=== PATIENT | female | born 1990 | race Caucasian/White ===

== ENCOUNTER 2017-02-26 07:22 | Inpatient (IN) | payer OTHER ==
[~2017-02-26] VITALS: Ht 162.6 cm; Wt 95.0 kg
[2017-02-26] VITALS (8 sets, daily range): BP systolic 103–120; BP diastolic 50–70
[~2017-02-26 07:22] MED LIST: DOCU10CA PO; IBUP80TA PO; IRON65TA PO; MOM30SS PO; PERCOCET PO; PRENCHW PO; VITAPRTA PO
[2017-02-26 08:35] LABS: MEAN CORPUSCULAR HEMOGLOBIN 28.3 pg (27.0-33.0); MEAN CORPUSCULAR HGB CONC 33.3 g/dl (32.0-36.5); MEAN CORPUSCULAR VOLUME 84.9 fl (80.0-96.0); RED CELL DISTRIBUTION WIDTH 14.5 % (11.5-14.5); WHITE BLOOD COUNT 9.7 K/mm3 (4.0-10.0)
[2017-02-26] MEDS ORDERED: BICITRA 30ML SOLN UDC PO ONE (08:45)
[2017-02-26] MEDS ORDERED: LR 1,000 ML IV SCH (08:45)
[2017-02-26] MEDS ORDERED: AZITHROMYCIN INJ 500 MG, VIAL MATE ADAPTER 1 EACH in D5W 250 ML IV ONE (08:45)
[2017-02-26] MEDS: DOCUSATE SODIUM 100 MG CAP PO SCH ×2 (09:00→20:54)
[2017-02-26] MEDS ORDERED: MORPHINE PRES-FREE INJ 10 MG/10 ML VIAL (J2274) As Ordered ONE (10:11)
[2017-02-26] MEDS ORDERED: PHENYLephrine HCL 500 MCG/5 ML (100MCG/ML) SYRINGE (J2370) As Ordered ONE (11:07)
[2017-02-26] MEDS ORDERED: ePHEDrine SULFATE 25 MG/5 ML(5MG/ML) SYRINGE As Ordered ONE (11:07)
[2017-02-26] MEDS ORDERED: OXYTOCIN INJ 10 UNITS/ML VIAL (J2590) As Ordered ONE (11:07)
[2017-02-26] MEDS ORDERED: NALBUPHINE HCL 10 MG/ML AMP (J2300) IV PRN (12:30)
[2017-02-26] MEDS ORDERED: fentaNYL 100 MCG/2 ML INJECTION (J3010) IV PRN (12:30)
[2017-02-26] MEDS ORDERED: ONDANSETRON 4MG/2ML VIAL (J2405) IV PRN ×2 (12:30→13:00)
[2017-02-26] MEDS ORDERED: MEPERIDINE INJ 25 MG/ML VIAL (J2175) IV PRN (12:30)
[2017-02-26] MEDS ORDERED: KETOROLAC 30 MG/ML VIAL (J1885) IV PRN (12:30)
[2017-02-26] MEDS ORDERED: PERCOCET 5MG/325MG TAB PO PRN ×2 (13:00)
[2017-02-26] MEDS ORDERED: RHOGAM 300 MCG (1500 IU) INJ (J2790) IM SCH (13:00)
[2017-02-26] MEDS ORDERED: PROMETHAZINE 25 MG TAB PO PRN (13:00)
[2017-02-26] MEDS ORDERED: MEASLES,MUMPS,RUBELLA VACCINE INJ (MMR-II) (90707) SC SCH (13:00)
[2017-02-26] MEDS ORDERED: METHYLERGONOVINE MALEATE 0.2 MG/ML VIAL (J2210) IM PRN (13:00)
[2017-02-26] MEDS: KETOROLAC 30 MG/ML VIAL (J1885) IV SCH ×2 (15:02→20:55)
[2017-02-26] MEDS: LR 1,000 ML IV SCH ×2 (15:02→20:58)
[2017-02-27 02:10] VITALS: BP 109/57
[2017-02-27] MEDS: LR 1,000 ML IV SCH ×3 (03:00→21:00)
[2017-02-27] MEDS: KETOROLAC 30 MG/ML VIAL (J1885) IV SCH ×2 (03:21→09:38)
[2017-02-27 05:52] VITALS: BP 114/51
[2017-02-27 07:11] LABS: MEAN CORPUSCULAR HEMOGLOBIN 28.6 pg (27.0-33.0); MEAN CORPUSCULAR HGB CONC 33.2 g/dl (32.0-36.5); MEAN CORPUSCULAR VOLUME 86.1 fl (80.0-96.0); RED CELL DISTRIBUTION WIDTH 14.8 % (11.5-14.5); WHITE BLOOD COUNT 13.7 K/mm3 (4.0-10.0)
[2017-02-27] MEDS ORDERED: PRENATAL VITAMIN TAB PO SCH (09:00)
[2017-02-27] MEDS: DOCUSATE SODIUM 100 MG CAP PO SCH ×2 (09:38→21:00)
[2017-02-27 10:00] VITALS: BP 127/58
[2017-02-27 14:00] VITALS: BP 102/45
[2017-02-27 18:00] VITALS: BP 117/56
[2017-02-27] MEDS: IBUPROFEN 800 MG TAB PO SCH (18:46)
--- NOTE | 2017-02-27 19:48 | IPN ---
DATE: 02/27/2017 Postoperative day 1. This lady had a repeat section for live male , 8 pounds 4 ounces, 3746 grams. No available at the present time. Her admitting hemoglobin 13.0, MAC 38.9, platelets 152. day #1 hemoglobin was 7.2, hematocrit 21.7, platelets 105. Her blood pressure 102/45, respirations 18, pulse 80 and temperature 99.8. ON EXAMINATION: She appears to be normocephalic, atraumatic. Neck: Full range of motion. Pupils equal and reactive to light. Despite her hemoglobin being low she is normotensive and she has no tachycardia; feels well on mobility. Distal pulses symmetric. No evidence of deep venous thrombosis (DVT), pulmonary embolism (PE), or superficial phlebitis. No wheezes or rhonchi. Chest is clear bilaterally to bases. Uterus is two below. Lochia is moderate. Incision clean and dry. Bowel sounds are present. No rashes, lesions or pruritus. No arthralgia, myalgia. No complaints of cough, wheezes, shortness of breath or dyspnea on exertion. She is neuro complete. No bladder issues. Meyer catheter is out. No nausea, vomiting, diarrhea or constipation. She does not smoke or drink, does not abuse drugs and there is no domestic violence. She is presently fully clothed, mobile and anxious for discharge tomorrow. Meds will be given at discharge.
[2017-02-27 21:49] VITALS: BP 134/63
[2017-02-28] MEDS: IBUPROFEN 800 MG TAB PO SCH ×2 (02:23→10:00)
[2017-02-28 05:34] VITALS: BP 109/54
[2017-02-28] MEDS ORDERED: PRENATAL VITAMINS CHEWABLE TABLET PO SCH (09:00)
[2017-02-28] MEDS: DOCUSATE SODIUM 100 MG CAP PO SCH (09:08)
[2017-02-28] MEDS ORDERED: COLA100C3 PO (10:07)
[2017-02-28] MEDS ORDERED: IBUP-1114 PO (10:08)
--- NOTE | 2017-02-28 18:24 | DSES ---
DATE OF ADMISSION: 02/26/2017 DATE OF DISCHARGE: 02/28/2017 This lady is a 2, now para 2, admitted for repeat section. Delivered a live male infant, 8 pounds 4 ounces, 3746 grams. On her second postoperative day we discussed phlebitis, cystitis, mastitis, metritis, and cellulitis, diet, exercise, pain management, perineal breast and wound care. The rest the examination is unremarkable. Blood pressure is 109/54, respirations 16, pulse 56, temperature is 98.1. She normocephalic, atraumatic. Neck: Full range of motion. Pupils equal and reactive to light. Distal pulses symmetric. No evidence of deep vein thrombosis (DVT), pulmonary embolism (PE) or superficial phlebitis. Chest is clear bilaterally at the bases. No wheezes or rhonchi. No costovertebral angle (CVA) tenderness. Uterus 2 below. Lochia is moderate. Four-quadrant bowel sounds. Incision is clean and dry. No rashes, lesions, pruritus. No arthralgia, myalgia. No complaints of cough, wheezes, shortness breath, or dyspnea on exertion. No chest pain. No bleeding. Neurologic complete. No incontinency, urgency, or frequency. No nausea, vomiting, diarrhea, or constipation. No PUBLIC INFORMATION SPECIALIST issues. She does not smoke, drink, abuse drugs, and no domestic violence. to a soldier. In summary, we have a term gestation for elective repeat section. Medications were given out to the patient pre-discharge, and she has a 2-week incision check and a 6-week check.
== END 2017-02-28 12:35 | disposition home or self-care (01) | DRG 766 ==
LOC: M LDI 07:22 → M OBS 13:48
PROVIDERS: ADMIT Obstetrics & Gynecology; ATTEND Obstetrics & Gynecology
PROC: 0UB70ZZ Excision of Bilateral Fallopian Tubes, Open Approach (ICD-10-PCS; 2017-02-26)
PROC: 10D00Z1 Extraction of Products of Conception, Low, Open Approach (ICD-10-PCS; principal; 2017-02-26 10:30)
DX: O34.211 Maternal care for low transverse scar from previous cesarean delivery (principal); Z37.0 Single live birth; Z30.2 Encounter for sterilization; Z3A.39 39 weeks gestation of pregnancy

== ENCOUNTER 2017-04-01 22:05 | Emergency (ER) | payer OTHER ==
[~2017-04-01] VITALS: Ht 162.6 cm; Wt 84.6 kg
[~2017-04-01 22:05] MED LIST changes: +COLA100C5 PO; +IBUP-1114 PO
[2017-04-01 22:14] VITALS: BP 115/65
== END 2017-04-02 00:13 | disposition home or self-care (01) ==
LOC: M ED 22:05
DX: N94.19 Other specified dyspareunia (principal)

== ENCOUNTER 2022-10-31 09:59 | Emergency (ER) | payer OTHER, SELFPAY ==
[~2022-10-31] VITALS: Ht 162.6 cm; Wt 92.6 kg
[2022-10-31 10:00] VITALS: BP 111/72
[2022-10-31 12:22] LABS: BASO # 0.1 10^3/uL (0.0-0.2); BASO % 0.4 % (0.0-1.0); EOS # 0.1 10^3/uL (0.0-0.5); EOS % 0.6 % (0.0-3.0); HEMATOCRIT 41.3 % (36.0-47.0); HEMOGLOBIN 13.5 g/dl (12.0-15.5); LYMPH # 2.5 10^3/uL (1.5-5.0); LYMPH % 18.3 % (24.0-44.0); MEAN CORPUSCULAR HEMOGLOBIN 27.3 pg (27.0-33.0); MEAN CORPUSCULAR HGB CONC 32.7 g/dl (32.0-36.5); MEAN CORPUSCULAR VOLUME 83.6 fl (80.0-96.0); MONO # 0.7 10^3/uL (0.0-0.8); MONO % 5.3 % (2.0-8.0); NEUTROPHILS # 10.2 10^3/uL (1.5-8.5); NEUTROPHILS % 75.2 % (36.0-66.0); PLATELET COUNT, AUTOMATED 282 10^3/uL (150-450); RED BLOOD COUNT 4.94 10^6/uL (4.00-5.40); WHITE BLOOD COUNT 13.5 10^3/uL (4.0-10.0)
[2022-10-31 12:43] LABS: ERYTHROCYTE SEDIMENTATION RATE 46 mm/hr (0-20)
[2022-10-31 13:00] LABS: ALKALINE PHOSPHATASE 84 U/L (46-116); ALT/SGPT 25 U/L (7.0-40); AST/SGOT 24 U/L (<34); BILIRUBIN,DIRECT 0.2 MG/DL (<0.4); BILIRUBIN,TOTAL 0.6 MG/DL (0.3-1.2); BLOOD UREA NITROGEN 10 MG/DL (9-23); CALCIUM LEVEL 9.2 MG/DL (8.5-10.1); CARBON DIOXIDE LEVEL 28 MMOL/L (20-31); CHLORIDE LEVEL 104 MMOL/L (98-107); CREATININE FOR GFR 0.65 MG/DL (0.55-1.30); GLOMERULAR FILTRATION RATE > 60.0 (>60); GLUCOSE, FASTING 90 MG/DL (60-100); SODIUM LEVEL 141 MMOL/L (136-145); TOTAL PROTEIN 7.2 G/DL (5.7-8.2)
[2022-10-31 13:02] LABS: FREE T4 0.98 NG/DL (0.89-1.76); THYROID STIMULATING HORMONE 1.333 uIU/ML (0.55-4.78)
[2022-10-31 13:13] LABS: HEMOGLOBIN A1c 5.4 % (4.0-6.0)
[2022-10-31] MEDS ORDERED: ISOVUE-370 76% 100ML VIAL As Ordered ONE (13:19)
[2022-10-31] MEDS ORDERED: FLON27.5 NARES (14:03)
[2022-10-31] MEDS ORDERED: CETI-24 PO (14:03)
== END 2022-10-31 14:34 | disposition home or self-care (01) ==
LOC: M ED 09:59
DX: R09.82 Postnasal drip (principal); R05.9 Cough, unspecified; E04.9 Nontoxic goiter, unspecified; E66.9 Obesity, unspecified; F41.9 Anxiety disorder, unspecified; F32.9 Major depressive disorder, single episode, unspecified